=== PATIENT | female | born 1990 | race Hispanic/Latino ===

== ENCOUNTER 2023-08-03 22:03 | Emergency (ER) | payer OTHER ==
[~2023-08-03] VITALS: Ht 147.3 cm; Wt 73.9 kg
[2023-08-03] MEDS: 0.9%NACL 1000ML 1,000 ML IV ONE (23:12)
[2023-08-03] MEDS: FAMOTIDINE 20MG VIAL IV ONE (23:12)
[2023-08-03] MEDS: ONDANSETRON 4MG INJ IVP ONE (23:12)
[2023-08-03 23:14] LABS: BASOPHILS # (AUTO) 0.01 K/uL (0.00-0.20); BASOPHILS % (AUTO) 0.2 % (0.0-5.0); EOSINOPHILS # (AUTO) 0.06 K/uL (0.00-0.70); EOSINOPHILS % (AUTO) 0.9 % (0.0-8.0); HEMATOCRIT 38.9 % (36-48); IMMATURE GRANULOCYTE ABSOLUTE 0.01 K/uL (0-1); LYMPHOCYTES # (AUTO) 1.1 K/uL (1.0-4.8); LYMPHOCYTES % (AUTO) 16.4 % (21.0-51.0); MEAN CORPUSCULAR HEMOGLOBIN 29.9 pg (27.0-33.0); MEAN CORPUSCULAR HGB CONC 35.5 g/dL (32.0-36.0); MEAN CORPUSCULAR VOLUME 84.4 fL (79-99); MONOCYTES # (AUTO) 0.4 K/uL (0.1-1.0); MONOCYTES % (AUTO) 6.3 % (3.0-13.0); PLATELET COUNT (AUTO) 228 K/uL (130-400); RED BLOOD CELL COUNT(AUTO) 4.61 MIL/uL (4.00-5.50); RED CELL DISTRIBUTION WIDTH 13.1 % (11.0-15.5); WHITE BLOOD COUNT (AUTO) 6.5 K/uL (4.8-10.8)
[2023-08-03 23:28] LABS: INR <= 0.93 (0.85-1.15); PROTHROMBIN TIME 10.4 SEC (9.6-11.6)
[2023-08-03 23:29] LABS: PARTIAL THROMBOPLASTIN TIME 27.1 SEC (26.3-35.5)
[2023-08-03 23:31] LABS: ALBUMIN 3.8 g/dL (3.5-5.0); BILIRUBIN,TOTAL 0.8 mg/dL (0.2-1.0); CREATININE 0.7 mg/dL (0.5-1.0); TOTAL PROTEIN, SERUM 7.7 g/dL (6.0-8.3)
[2023-08-03 23:35] LABS: APPEARANCE,URINE CLEAR (CLEAR); BILIRUBIN,URINE NEGATIVE (NEGATIVE); COLOR,URINE LIGHT-YELLOW (YELLOW); GLUCOSE, URINE (UA) NEGATIVE (NEGATIVE); KETONES,URINE NEGATIVE (NEGATIVE); LEUKOCYTE ESTERASE ,URINE NEGATIVE Leu/uL (NEGATIVE); NITRATE,URINE NEGATIVE (NEGATIVE); OCCULT BLOOD,URINE SMALL (NEGATIVE); PROTEIN,URINE NEGATIVE (NEGATIVE); UROBILINOGEN,URINE 0.2 mg/dL (0.2-1.0)
[2023-08-03 23:47] LABS: ADD UA MICROSCOPIC YES
[2023-08-03 23:47] LABS: POTASSIUM 2.9 mmol/L (3.5-5.1)
[2023-08-03 23:48] LABS: MUCUS,URINE RARE LPF (None Seen); RBC,URINE 0-1 /HPF (0-1); SQUAMOUS EPITHELIAL CELL,UR FEW /HPF (0-2)
[2023-08-03] MEDS: POTASSIUM BICARB/CIT AC 25 MEQ TABLET.EFF PO ONE (23:52)
[2023-08-04] MEDS ORDERED: PANT20TA PO (00:52)
[2023-08-04] MEDS ORDERED: ONDA4TAB10 PO (00:52)
[2023-08-04] MEDS: KETOROLAC 30MG VIAL (30MG/ML) IVP ONE (01:02)
[2023-08-04 01:03] VITALS: BP 127/69; PULSE 74; RESP 14; O2SAT 99
== END 2023-08-04 01:19 | disposition home or self-care (01) ==
LOC: EDH 22:03
DX: R10.13 Epigastric pain (principal); K29.70 Gastritis, unspecified, without bleeding; E87.6 Hypokalemia
CPT/HCPCS: 99284; 96374; 96375 ×2; 80053; 83690; 85025; 85610; 85730; 83605; 81001; 36415; 84145; J3490; J7030; J2405; J1885